=== PATIENT | female | born 1985 | race Two or more races ===

== ENCOUNTER 2025-03-07 09:50 | Emergency (ER) | payer MEDICAID, SELFPAY ==
[2025-03-07 09:56] VITALS: BP 169/68; PULSE 94; RESP 20; TEMP 36.8; O2SAT 94; BMI 52.7
--- NOTE | 2025-03-07 10:05 | XR_ITS ---
Examination: CT abdomen and pelvis without contrast. Coronal 3-D reconstructions. Sagittal 2-D reconstructions. Date and time of exam:March 07, 2025 1235 hours INDICATIONS: Right flank pain back pain beginning 3 days ago CTDI: vol (mGy): 18.8 DLP: (mGycm): 1165 Technique: Axial images of the abdomen have been obtained, 3 mm slice thickness Intravenous contrast material has not been administered. Low dose protocols were performed. One or more of the following dose reduction techniques were used; automated exposure control, adjustment of the mA and/or KV according to patient size, use of iterative reconstruction technique. Findings: No focal liver or splenic lesions No gallstones Pancreatic or adrenal mass No renal or ureteral calculi, no hydronephrosis Aorta normal size No pericecal inflammatory change Bilateral pelvic hypodense masses which may represent cysts, on the right side 5.9 cm, on the left side 6.2 cm Anteverted uterus Air distended L5-S1 Urinary bladder intact IMPRESSION: No renal calculi, no hydronephrosis Recommend pelvic sonography follow-up to assess bilateral pelvic hypodense masses
[2025-03-07 10:30] LABS: Basophils % (Auto) 0 % (0-2.5); Eosinophils # (Auto) 0.2 Thou/mm3 (0.0-0.5); Eosinophils % (Auto) 2 % (0-10); Hematocrit 35.6 % (36.0-46.0); Immature Granulocytes % (Auto) 0 % (0-0); Immature Granulocytes Auto 0.01 Thou/mm3 (0.00-0.00); Lymphocytes # (Auto) 2.5 Thou/mm3 (1.0-4.8); Lymphocytes % (Auto) 33 % (10-50); Mean Corpuscular HGB Conc 33.7 g/dl (31.0-37.0); Mean Corpuscular Hemoglobin 26.5 pg (25.0-35.0); Mean Corpuscular Volume 79 fL (80-100); Monocytes # (Auto) 0.4 Thou/mm3 (0.0-0.8); Monocytes % (Auto) 5 % (0-12); Neutrophils # (Auto) 4.4 Thou/mm3 (1.8-7.7); Neutrophils % (Auto) 59 % (37-80); Nucleated Red Blood Cell % 0 /100 WBC (0); Platelet Count 232 Thou/mm3 (140-440); Red Blood Count 4.52 Miln/mm3 (4.00-5.20); White Blood Count 7.5 Thou/mm3 (3.6-11.0)
[2025-03-07 10:49] LABS: Alanine Aminotransferase 27 U/L (10-49); Albumin, Serum 4.1 gm/dL (3.5-5.0); Albumin/Globulin Ratio 1.4 (1.2-2.2); Alkaline Phosphatase 80 U/L (46-116); Anion Gap 11 (7-16); Aspartate Amino Transferase 19 U/L (0-34); BUN/Creatinine Ratio 23 Ratio (12-20); Bilirubin,Total 0.3 mg/dL (0.3-1.2); Blood Urea Nitrogen 14 mg/dL (9-23); Calcium 8.3 mg/dL (8.3-10.6); Calcium (Corrected) 8.3 mg/dL (8.5-10.1); Carbon Dioxide 26.5 mMol/L (20.0-31.0); Chloride 106 mMol/L (98-107); Creatinine (Component) 0.6 mg/dL (0.6-1.3); Estimated Creatinine Clearance 172.4 mL/min (>60); Glucose 108 mg/dL (74-106); Lipase 33 U/L (12-53); Osmolality,Calculated 286 (275-295); Potassium 3.6 mMol/L (3.4-5.1); Sodium 143 mMol/L (136-145); Total Protein 7.1 gm/dL (5.7-8.2); eGFR > 60 See Note
[2025-03-07 11:08] LABS: Collection Type, Urine Clean Catch
[2025-03-07 11:28] LABS: Bacteria,Urine Rare; Bilirubin,Urine Negative (Negative); Blood,Urine 1+ (Negative); Clarity,Urine Turbid (Clear/Hazy); Color,Urine Yellow (Lt Yel-Yel); Culture Indicated,Urine Contaminated; Glucose, Urine Negative (Negative); Ketones,Urine Negative (Negative); Leukocyte Esterase,Urine Positive (Negative); Nitrite,Urine Negative (Negative); Protein,Urine 1+ (Neg - Trace); RBC,Urine 5 /hpf (0-3); Specific Gravity,Urine 1.026 (1.001-1.035); Squamous Epithelial Cell,Urine 13 /hpf (0-5); Urobilinogen,Urine Negative mg/dL (0.0-1.0); WBC,Urine 17 /hpf (0-5)
[2025-03-07 11:31] LABS: HCG Qualitative,Urine Negative
[2025-03-07 11:43] VITALS: BP 142/69; PULSE 98; RESP 20; TEMP 37; O2SAT 96
--- NOTE | 2025-03-07 13:22 | PD.EDFMALE ---
ED Female Urogenital RME/HPI General Chief complaint: Urogenital-Female Stated complaint: RIGHT FLANK/KIDNEY PAIN W/ PAINFUL URINATION Time Seen by Provider: 03/07/25 09:54 Arrival date/time: 03/07/25 09:50 39-year-old female presents to the emergency department today for complaint of right flank pain, kidney pain and painful urination Limitations: no limitations Related Data Previous Rx's ?Medication ?Instructions ?Recorded hydrocodone 5 mg-acetaminophen 325 1 tab PO BID PRN pain #10 tabs 11/25/23 mg tablet ibuprofen 800 mg tablet 800 mg PO TID PRN pain #30 tabs 11/25/23 ciprofloxacin HCl 500 mg tablet 500 mg PO BID 7 days #14 tabs 03/07/25 cyclobenzaprine 10 mg tablet 10 mg PO TID PRN muscle spasm 10 03/07/25 days #30 tab-caps ibuprofen 600 mg tablet 600 mg PO Q6H #30 tabs 03/07/25 Allergies Allergy/AdvReac Type Severity Reaction Status Date / Time No Known Allergies Allergy Verified 03/07/25 09:52 Review of Systems Review of Systems Systems Reviewed: All systems reviewed, normal except as documented Constitutional Constitutional: Reports system reviewed and no additional complaints, except as documented, Denies fever(s) and Denies headache(s) Eyes Eyes: Reports system reviewed and no additional complaints, except as documented and Denies blurry vision ENT Ears, Nose, Mouth, and Throat: Reports system reviewed and no additional complaints, except as documented, Denies headache(s), Denies nasal congestion and Denies nasal discharge Cardiovascular Cardiovascular: Reports system reviewed and no additional complaints, except as documented, Denies chest pain and Denies dyspnea Respiratory Respiratory: Reports system reviewed and no additional complaints, except as documented, Denies chest congestion, Denies cough and Denies dyspnea Gastrointestinal Gastrointestinal: Reports system reviewed and no additional complaints, except as documented and Reports abdominal pain Integumentary/Breasts Skin/Breast: Reports system reviewed and no additional complaints, except as documented and Denies rash Neurologic Neurologic: Reports system reviewed and no additional complaints, except as documented, Reports as per HPI and Denies headache(s) Past Medical History Past Medical History NEUROLOGIC: Negative Neurological Disorders CARDIAC: Negative Cardiac Disorders or Congestive Heart Failure RESPIRATORY: Negative Chronic Obstructive Pulmonary Disease (COPD) or Asthma GENITOURINARY: Negative Renal Disease ENDOCRINE: Negative Diabetes Mellitus Type 1 or Diabetes Mellitus Type 2 HEMATOLOGIC: Negative Sickle Cell Disease Social History SMOKING STATUS: Never smoker SUBSTANCE USE: does not use ED Exam General Limitations: Present no limitations General appearance: Present alert and in no apparent distress Head Head exam: Present atraumatic, normocephalic and normal inspection Eye Eye exam: Present normal appearance, PERRL and EOMI; Absent conjunctival injection ENT ENT exam: Present normal exam, normal oropharynx and mucous membranes moist Neck Neck exam: Present normal inspection, full ROM and trachea midline Chest Chest inspection: Present normal inspection and symmetric chest wall rise Respiratory Respiratory exam: Present normal lung sounds bilaterally; Absent respiratory distress Cardiovascular Cardiovascular exam: Present regular rate, normal rhythm and normal heart sounds Abdominal Exam Abdominal exam: Present soft and normal bowel sounds; Absent distention, tenderness, guarding, rebound, rigidity, tenderness at McBurney's Point or ascites Abdominal tenderness: Absent RUQ or RLQ Extremities Exam Extremities exam: Present normal inspection and full ROM Back Exam Back exam: Present normal inspection and full ROM Neurological Exam Neurological exam: Present alert, oriented X3 and CN II-XII intact Psychiatric Psychiatric exam: Present normal affect and normal mood Skin Skin exam: Present warm, dry, intact and normal color Course Quality Measures none Orders Category Date Time Status CT abdomen pelvis wo con Stat Exams 03/07/25 10:05 Completed CBC Stat Lab 03/07/25 10:12 Completed Comprehensive Metabolic Panel Stat Lab 03/07/25 10:12 Completed HCG Qualitative,Urine Stat Lab 03/07/25 10:40 Completed Lipase Stat Lab 03/07/25 10:12 Completed UA, C/S IF [Urinalysis, C/S if Indicated] Stat Lab 03/07/25 10:40 Completed Vital Signs Vital signs: Vital Signs Temperature 98.3 F 03/07/25 09:56 Pulse Rate 94 03/07/25 09:56 Respiratory Rate 20 03/07/25 09:56 Blood Pressure 169/68 H 03/07/25 09:56 Pulse Oximetry (%) 94 L 03/07/25 09:56 Oxygen Delivery Method Room Air 03/07/25 09:56 O2 saturation 94% r.a wnl Urogenital - Female MDM Narrative MDM Narrative:: 39-year-old female presents to the emergency department today for complaint of right flank pain, kidney pain and painful urination On exam patient well-appearing patient does not appear toxic no acute distress patient does have right flank pain and patient reports pain is worse with movement Lab work and imaging obtained lab work unremarkable patient does have mild UTI Imaging obtained no acute emergent findings noted incidentally patient does have cysts patient reports she has a history of these in the past Patient was given information to follow-up with [facility] patient states she will follow-up Patient discharged home in no distress to follow-up with primary care doctor in the next 24 to 48 hours and for any worsening symptoms to return to the ER immediately Patient data External records reviewed:: [facility] previous records Clinical information provided by:: patient Social determinants that could affect healthcare access:: none Patient has the following chronic illnesses:: See history How is presenting disease/condition affected by chronic disease/condition?: uneffected by Evaluation data The following diagnostics were reviewed and interpreted by me:: lab results and radiology exam(s) Lab and/or radiology exams considered but not ordered:: Labs radiology obtained Interpretation Summary: Reviewed by me Medications / Prescriptions Medications or Prescriptions considered but not ordered:: Given Medication administrations:: Given Consultations Consultation(s) initiated? (list below): No Diagnosis Urogenital Female Differential Diagnosis: urinary tract infection, bacterial vaginosis and other Most likely diagnosis given after review of the tests above:: UTI, ovarian cyst Admission Indicated Admission indicated?: not indicated Admission Request Was there a request for admission?: No Disposition Plan Disposition Plan: Discharge Discharge Attestation Discharge Attestation: The patient and all family members were given an opportunity to ask questions and understood the discharge instructions. Discharge instructions specifically effects, indications for sooner follow up or return to the emergency department, and the expected course of current diagnosis. Patient condition: Stable Discharge Plan Plan Patient Disposition: HOME (Self Care) Discharge Disposition comment: Stable Prescriptions/Referrals Prescriptions/Med Rec: New cyclobenzaprine 10 mg tablet 10 mg PO TID PRN (Reason: muscle spasm) 10 Days Qty: 30 0RF ibuprofen 600 mg tablet 600 mg PO Q6H Qty: 30 0RF ciprofloxacin HCl 500 mg tablet 500 mg PO BID 7 Days Qty: 14 0RF No Action ibuprofen 800 mg tablet 800 mg PO TID PRN (Reason: pain) Qty: 30 0RF hydrocodone-acetaminophen 5-325 mg tablet 1 tab PO BID MDD 10 PRN (Reason: pain) Qty: 10 0RF Referrals: Kody Carter MD [Physician] - 03/08/25 Problem List Clinical Impression: Acute flank pain, Ovarian cyst, UTI (urinary tract infection) Patient/Caregiver Discharge Instructions Education Materials: Abdominal Pain Additional Instructions: Please follow-up with the [facility] as discussed for worsening symptoms or concerns return immediately Please bring a copy of your CT report to [facility] for worsening symptoms return immediately Print Language: Kiswahili Stand Alone Forms: Bonnie Award Info., Work/School Release, Patient Portal Info Letter PA/INKER Supervising Physician PA/INKER Supervising Physician: Dr. hankins
== END 2025-03-07 20:37 | disposition home or self-care (01) ==
PROVIDERS: Nurse Practitioner Primary Care; Emergency Provider Emergency Medicine
DX: N39.0 Urinary tract infection, site not specified (principal); N83.201 Unspecified ovarian cyst, right side
CPT/HCPCS: 36415; 74176; 80053; 81001; 81025; 83690; 85025; 99284

== ENCOUNTER 2025-03-08 09:33 | Outpatient (AMB) | payer MEDICAID, SELFPAY ==
[2025-03-08 09:49] VITALS: BP 129/80; PULSE 96; RESP 18; TEMP 36.8; O2SAT 95; BMI 51.7
--- NOTE | 2025-03-08 09:49 | GYNCLNT_ITS ---
Vital Signs 03/08/25 09:49 Height 1.63 m Height Method Stated Weight 137.552 kg Weight Measurement Method Standing Scale BMI 51.7 BP 129/80 Blood Pressure Source Automatic Cuff Blood Pressure Location Right Upper Arm Position Sitting Respiration 18 Pulse 96 Pulse Source Monitor Temp 98.3 F Temp Source Temporal Artery Scan Pulse Oximetry (%) 95 Oxygen Delivery Method Room Air Allergies/Home Meds Allergies & Medications Allergies No Known Allergies Allergy (Verified 03/22/25 09:47) Medication Reconciliation hydrocodone 5 mg-acetaminophen 325 mg tablet 1 tab PO BID PRN pain #10 tabs 11/25/23 [Rx Confirmed 03/22/25] ibuprofen 800 mg tablet 800 mg PO TID PRN pain #30 tabs 11/25/23 [Rx Confirmed 03/22/25] ibuprofen 600 mg tablet 600 mg PO Q6H #30 tabs 03/07/25 [Rx Confirmed 03/22/25] docusate sodium 100 mg capsule (Stool Softener) 100 mg PO QDAY 90 days #90 caps 03/22/25 [Rx] polyethylene glycol 3350 17 gram/dose oral powder (Miralax) 4 g PO QDAY 30 days #119 grams 03/22/25 [Rx] Intake Visit Data Collection New Patient or Established: Established Patient (seen at [facility] within 3 years) Reason for Visit:: HOSPITAL FOLLOW UP Seen by Clinical Staff ONLY (RN/MA): No Production Potter Required: No Do You Feel Safe at Home: Yes Authorities Contacted: N/A PCP or OBGYN visit in last 3 months: Yes Date of Last PCP or OBGYN visit: 03/07/25 Hx Now: No Are you currently on any form of Control: No Last menstrual period: 02/24/25 Pain Present Currently: No Pain Scale Used: Burgos-Tom/Numerical Pain scale:: 0 Smoking Status 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 During her ER visit, she complained of right flank pain, back pain, and painful urination. Patient has not yet started her prescribed antibiotics for the UTI, as they were not sent to the pharmacy until today. She plans to begin the treatment today. Incidentally, during imaging for her urinary tract symptoms, bilateral pelvic masses were discovered. Patient mentions that she had a similar check about 2-3 years ago at [facility], where the masses were noted to be smaller. 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 She reports carrying her child to the bathroom, which may have contributed to her spinal concerns. Patient currently does not have a primary care physician and typically seeks treatment at [facility]. Medical history includes UTI diagnosed on 03-07-2025, bilateral ovarian cysts identified on CT scan on 03-07-2025, and L5-S1 spinal issue (possibly air bubble or disc degeneration) noted on CT scan. Patient is prescribed antibiotics for UTI but has not started them yet due to d elayed prescription. Review of systems is positive for right flank pain, painful urination, and back pain. Diagnostic Test Results and Labs: CT scan (03/07/2025): - Bilateral pelvic hypodense masses (likely cysts) - Right side: 5.9 cm - Left side: 6.2 cm - Anteverted uterus - No liver or splenic lesions - No gallstones - No pancreas or adrenal masses - No renal or ureteral calculi - No hydronephrosis - Normal aorta - No signs of appendicitis - L5-S1 level: air bubble noted, disc degeneration CBC (03/07/2025): - Hemoglobin: 12.0 g/dL - WBC: 7.5 Chemistry (03/07/2025): within normal limits Urinalysis (03/07/2025): - Protein: 1+ - Blood: 1+ - Leukocyte esterase: positive - Squamous epithelial cells: 13 HCG (03/07/2025): negative Review of Systems Review of Systems Systems Reviewed: All systems reviewed, normal except as documented Exam General General Appearance: alert, in no apparent distress and healthy appearing Head Head exam: atraumatic Neck Neck exam: Present normal inspection and trachea midline Chest Chest inspection: Present normal inspection and symmetric chest wall rise External exam: Present normal external exam; Absent tenderness Neuro Neurological exam: Present oriented X3 Psych Psychiatric exam: Present normal affect and normal mood Office Procedures OB Clinic LOC & Office Proc's Nursing/Assessment Patient Status: Established Patient OB Clinic Nursing Assessment: Medication Reconciliation, Update PMH in EMR and Vital Signs OB Clinic Coordination of Care: Complex Care and Chronic Disease 1-5, Consent,records obtained, informed consent, Education Simp Pt/Fam and Staff clarify orders Established Patient Charge Established Patient Point Assignment: 85 Established Patient Point Charge: EP Level 3 (80-115) Assessment & Plan Diagnosis / Problem List (1) Ovarian cyst: Status: Inactive (2) UTI (urinary tract infection): Status: Inactive Plan Bilateral ovarian cysts: - CT scan revealed bilateral pelvic hypodense masses, likely ovarian cysts. - Right side measures 5.9 cm, left side 6.2 cm. - Not meeting criteria for immediate surgical intervention. - History of smaller cysts 2-3 years ago suggests possible growth or new cysts. - Order tumor marker blood tests to further characterize the cysts. - Schedule follow-up ultrasound in 3 months. - Consider surgical intervention if cysts persist after 2-3 ultrasounds. - Provide blood test results via phone. - Reassess in 3 months with ultrasound results. Urinary Tract Infection (UTI): - Initially presented to ER on 03/07/2025 with right flank pain, back pain, and painful urination. - Urine analysis showed 1+ protein, 1+ blood, positive leukocyte esterase, and 13 squamous epithelial cells. - Start prescribed antibiotic course today. - Complete full course of antibiotics as prescribed. Spinal disc degeneration: - CT scan revealed air bubble at L5-S1 level, indicating disc degeneration. - Recommend establishing care with a primary care physician for evaluation and management. - Provided referral to Dr. Escudero at [facility] for primary care. - Consider referral to hearing aid specialist if deemed necessary by PCP.
== END 2025-03-08 10:10 | disposition home or self-care (01) ==
LOC: HODSOBC 09:33
PROVIDERS: Supervising Provider Obstetrics & Gynecology; Visit Provider Obstetrics & Gynecology
DX: N83.202 Unspecified ovarian cyst, left side (principal); N83.201 Unspecified ovarian cyst, right side; N39.0 Urinary tract infection, site not specified; M51.379 Other intervertebral disc degeneration, lumbosacral region without mention of lumbar back pain or lower extremity pain
CPT/HCPCS: 99213; G0463

== ENCOUNTER 2025-03-22 09:16 | Outpatient (AMB) | payer MEDICAID, SELFPAY ==
[2025-03-22 09:47] VITALS: BP 134/79; PULSE 105; RESP 18; TEMP 36.2; O2SAT 96; BMI 52.0
--- NOTE | 2025-03-22 09:47 | AMB.GYNCLNOT ---
Vital Signs 03/22/25 09:47 Height 1.63 m Height Method Stated Weight 138.062 kg Weight Measurement Method Standing Scale BMI 52.0 BP 134/79 H Blood Pressure Source Automatic Cuff Blood Pressure Location Left Upper Arm Position Sitting Respiration 18 Pulse 105 H Pulse Source Monitor Temp 97.2 F Temp Source Oral Pulse Oximetry (%) 96 Oxygen Delivery Method Room Air Allergies/Home Meds Allergies & Medications Allergies No Known Allergies Allergy (Verified 03/22/25 09:47) Medication Reconciliation hydrocodone 5 mg-acetaminophen 325 mg tablet 1 tab PO BID PRN pain #10 tabs 11/25/23 [Rx Confirmed 03/22/25] ibuprofen 800 mg tablet 800 mg PO TID PRN pain #30 tabs 11/25/23 [Rx Confirmed 03/22/25] ibuprofen 600 mg tablet 600 mg PO Q6H #30 tabs 03/07/25 [Rx Confirmed 03/22/25] docusate sodium 100 mg capsule (Stool Softener) 100 mg PO QDAY 90 days #90 caps 03/22/25 [Rx] polyethylene glycol 3350 17 gram/dose oral powder (Miralax) 4 g PO QDAY 30 days #119 grams 03/22/25 [Rx] Intake Visit Data Collection New Patient or Established: Established Patient (seen at [facility] within 3 years) Reason for Visit:: LAB RESULTS , DONE Seen by Clinical Staff ONLY (RN/MA): No 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 Required: No Do You Feel Safe at Home: Yes Authorities Contacted: N/A PCP or OBGYN visit in last 3 months: Yes Date of Last PCP or OBGYN visit: 03/08/25 Hx Now: No Are you currently on any form of Control: No Last menstrual period: 03/08/25 Pain Present Currently: No Pain Scale Used: Burgos-Tom/Numerical Pain scale:: 0 Smoking Status Smoking Status: Never smoker Campaign Specialist history Campaign Specialist History Menstrual regularity: regular Flow: normal Monthly: Yes How many days does period last: 5 Age at menarche: 10 Menopausal: No Currently sexually active: 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 1. Little interest or pleasure in doing things: not at all 2. Feeling down, depressed, or hopeless: not at all Total score: 0 PHQ-9 3. Trouble falling or staying asleep, or sleeping too much: Not at all 4. Feeling tired or having little energy: Not at all 5. Poor appetite or overeating: Not at all 6. Feeling bad about yourself - or that you are a failure or have let yourself or your family down: Not at all 7. Trouble concentrating on things, such as reading the newspaper or watching television: Not at all 8. Moving or speaking so slowly that other people could have noticed? - Or the opposite - being so fidgety or restless that you have been moving around a lot more than usual: not at all 9. Thoughts that you would be better off or of hurting yourself in some way: Not at all Total score: 0 If you checked off any problems, how difficult have these problems made it for you to do your work, take care of things at home, or get along with other people?: not difficult at all Source: Developed by Drs. Tarik Garcia, Salina Larsen, Bob Fabian and colleagues, with an educational jhonny from [employer]. Depression screen completed yes Social History Living Situation History Lives With: Family Housing: House Tobacco History Smoking Status: Never smoker Second Hand Smoke Exposure: No Alcohol History Alcohol Intake: Never Domestic Abuse History Do You Feel Safe at Home: Yes History of Present Illness HPI Narrative Patient presents for follow-up after an emergency room visit on March 11, 2025, for acute right-sided flank pain and painful urination. During the ER workup, bilateral pelvic hypodense masses were incidentally found on CT scan, measuring 5.9 cm on the right side and 6.2 cm on the left side. She reports occasional discomfort, describing it as a gas kind of feeling that can be really painful. She denies experiencing this discomfort constantly, noting it occurs once in a while. Patient also mentions ongoing issues with constipation, stating she has bowel movements every other day rather than daily. She is a 39-year-old female who has not reported any new or worsening symptoms since her ER visit. She denies any other symptoms beyond the occasional discomfort and constipation previously mentioned. The patient's daily functioning does not appear to be significantly impacted by her current symptoms. She has a history of chronic constipation and an emergency room visit on March 07, 2025, for acute right-sided flank pain and painful urination. Reports constipation with bowel movements every other day. Patient has been taking ibuprofen for pain management, which was prescribed after her ER visit on March 11, 2025. Diagnostic Test Results and Labs: - Hemoglobin (03/11/2025): 12 g/dL - Hematocrit (03/11/2025): 35.6% - Platelet count (03/11/2025): 232 - Chemistry (03/11/2025): Within normal limits except glucose 108 mg/dL - Urinalysis (03/11/2025): Turbid, 1+ protein, 1+ blood, negative for nitrites - CT scan (03/11/2025): Bilateral pelvic hypodense masses, likely cysts. Right side: 5.9 cm, Left side: 6.2 cm. Anteverted uterus. Rest of abdomen and pelvis within normal limits. - CEA (Date N/A): 1.4 (normal < 3.9) - CA125 (Date N/A): 8.2 (normal < 38) - FSH (Date N/A): Within normal limits (exact value not provided) Exam General General Appearance: alert, in no apparent distress and healthy appearing Head Head exam: atraumatic Neck Neck exam: Present normal inspection and trachea midline Chest Chest inspection: Present normal inspection and symmetric chest wall rise External exam: Present normal external exam; Absent tenderness Neuro Neurological exam: Present oriented X3 Psych Psychiatric exam: Present normal affect and normal mood Office Procedures OB Clinic LOC & Office Proc's Nursing/Assessment Patient Status: Established Patient OB Clinic Nursing Assessment: Medication Reconciliation, Update PMH in EMR and Vital Signs OB Clinic Coordination of Care: Education Complex Pt/Fam, Consent,records obtained, informed consent, Lab and Imaging orders and Staff clarify orders Established Patient Charge Established Patient Point Assignment: 80 Established Patient Point Charge: EP Level 3 (80-115) Assessment & Plan Diagnosis / Problem List (1) Pelvic mass in female: Status: Acute (2) Bilateral ovarian cysts: Status: Acute Plan Bilateral ovarian cysts Plan: - Repeat ultrasound in 6 months for follow-up assessment of ovarian cysts. - No surgical intervention recommended at this time. - Follow-up appointment in 3 months. - Pap smear to be performed at next visit. Constipation Plan: - Prescribe medication for constipation, to be taken for 3 months. - Recommend increased dietary fiber intake. - Suggest fiber supplement (e.g., Benefiber) if dietary changes are insufficient. - Follow-up in 3 months to reassess symptoms.
== END 2025-03-22 10:28 | disposition home or self-care (01) ==
LOC: HODSOBC 09:16
PROVIDERS: Supervising Provider Obstetrics & Gynecology; Visit Provider Obstetrics & Gynecology
DX: N83.202 Unspecified ovarian cyst, left side (principal); N83.201 Unspecified ovarian cyst, right side; K59.00 Constipation, unspecified
CPT/HCPCS: 99213; G0463